=== PATIENT | female | born 1945 | race Caucasian/White ===

== ENCOUNTER → 2023-08-22 14:12 | Outpatient (REF) | payer MEDICARE, OTHER, SELFPAY ==
--- NOTE | 2023-09-04 14:07 | OID.L.PAT ---
Pulmonary Nodule Pat Letter
- -
09/04/23
SUSHANT US
[address] [facility]
[place], [place]
Randall CANCHOLA,
A pulmonary nodule was seen on an imaging study done by [facility]. This was reviewed by the [facility] Pulmonary Nodule Advisory Board and the following recommendation was made:
Recommendation: PET/CT - now and follow up with a Equity Structurer
If you have any questions, please do not hesitate to contact your primary care physician. If you are in need of a Physician, you can go to [email or web address] and click on 'Find a Provider'. Type 'Family Medicine' in the search.
Oncology Nurse Navigator
[facility]
[phone]
--- NOTE | 2023-09-04 14:08 | OID.L.REC ---
Pulmonary Nodule Follow Up
- Recommendation
09/04/23
Pulmonary Nodule Review Recommendations
Your patient, SUSAHNT US, had a pulmonary nodule seen on an imaging study done on 08/22/23 in the [facility] Radiology Department.
This was reviewed by the [facility] Pulmonary Nodule Advisory Board and the following recommendation was made:
Recommendation: PET/CT - now and follow up with a Foreign Policy Officer
If you have any questions please do not hesitate to contact us.
Sincerely,
Oncology Nurse Navigator
[facility]
[phone]
== END ==
LOC: HWRAD 14:12
PROVIDERS: ATTENDING PHYSICIAN Nurse Practitioner Adult Health
DX: E11.9 Type 2 diabetes mellitus without complications (principal); E78.00 Pure hypercholesterolemia, unspecified
CPT/HCPCS: 75571

== ENCOUNTER → 2023-12-25 10:38 | Outpatient (REF) | payer MEDICARE, OTHER, SELFPAY | LOC: HWWDC 10:38 | PROVIDERS: ATTENDING PHYSICIAN Obstetrics & Gynecology Gynecology; FAMILY PHYSICIAN Nurse Practitioner Adult Health | DX: Z12.31 Encounter for screening mammogram for malignant neoplasm of breast (principal) | CPT/HCPCS: 77063; 77067 ==

== ENCOUNTER → 2024-12-30 10:52 | Outpatient (REF) | payer MEDICARE, OTHER, SELFPAY | LOC: HWWDC 10:52 | PROVIDERS: ATTENDING PHYSICIAN Obstetrics & Gynecology Gynecology; FAMILY PHYSICIAN Nurse Practitioner Adult Health | DX: Z12.31 Encounter for screening mammogram for malignant neoplasm of breast (principal) | CPT/HCPCS: 77063; 77067 ==

== ENCOUNTER → 2025-03-04 13:34 | Outpatient (REF) | payer MEDICARE, OTHER, SELFPAY | LOC: WDC 13:34 | PROVIDERS: ATTENDING PHYSICIAN Obstetrics & Gynecology Gynecology; FAMILY PHYSICIAN Nurse Practitioner Adult Health | DX: Z15.89 Genetic susceptibility to other disease (principal) | CPT/HCPCS: 76641 ==